=== PATIENT | male | born 1930 | race Caucasian/White ===

== ENCOUNTER 2016-11-22 01:07 | Inpatient (IN) | payer MEDICARE ==
[2016-11-22] MEDS ORDERED: PIPERACILLIN/TAZOBACTAM 3.375 GM VIAL IV ONE (03:19)
[2016-11-22] MEDS ORDERED: ONDANSETRON HCL INJ/PF 4 MG/2 ML SDV IV ONE (03:20)
[2016-11-22] MEDS ORDERED: MORPHINE SULFATE 10 MG/ML INJ IV ONE (03:20)
[2016-11-22] MEDS ORDERED: DIPH/PERTUSS(ACELL)/TETANUS VAC/PF 0.5 ML SYR (>=10YO) IM ONE (03:25)
--- NOTE | 2016-11-22 03:25 | ER Document Report ---
ED General - General Chief Complaint: Rash Stated Complaint: FEVER/RIGHT ARM RASH Time seen by provider: 03:20 Notes: Patient is an 86-year-old male that comes emergency department for chief complaint of fever and also a "rash" on his right arm. Fever started night, he states when he woke on Thursday he noticed the redness on his right arm , symptoms have worsened over the past almost 2 days. Patient states he feels pain in his right armpit and the red areas on his arm are also tender. He denies nausea or vomiting, headache, chest pain, shortness of breath, abdominal pain. He states that he felt lightheaded earlier at home and fell in the bathroom, denies hitting his head or injuring himself. He does not have diabetes, he denies blood thinner use. He states he has a history of shingles and he wonders if this is what the rash is. TRAVEL OUTSIDE OF THE [place] 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 Past Surgical History: Reports: Hx Abdominal Surgery - Immunizations Immunizations up to date: No Hx Diphtheria, Pertussis, Tetanus Vaccination: Yes Review of Systems - Review of Systems Constitutional: See HPI EENT: No symptoms reported Cardiovascular: No symptoms reported Respiratory: No symptoms reported Gastrointestinal: No symptoms reported Genitourinary: No symptoms reported Male Genitourinary: No symptoms reported Musculoskeletal: See HPI Skin: See HPI Hematologic/Lymphatic: No symptoms reported Neurological/Psychological: No symptoms reported Physical Exam - Vital signs Vitals: Temp Pulse Resp BP Pulse Ox 99.2 F 78 16 126/64 H 97 11/22/16 01:53 11/22/16 01:53 11/22/16 01:53 11/22/16 01:53 11/22/16 01:53 Interpretation: Normal - General General appearance: Appears well, Alert In distress: None - HEENT Head: Normocephalic, Atraumatic Eyes: Normal Conjunctiva: Normal Extraocular movements intact: Yes Eyelashes: Normal Pupils: PERRL Sinus: Normal Nasal: Normal Mouth/Lips: Normal Mucous membranes: Normal Pharynx: Normal Neck: Normal - Respiratory Respiratory status: No respiratory distress Chest status: Nontender Breath sounds: Normal. No: Decreased air movement, Wheezing Chest palpation: Normal - Cardiovascular Rhythm: Regular. No: Tachycardia Heart sounds: Normal auscultation, S1 appreciated, S2 appreciated Murmur: No - Abdominal Inspection: Normal Distension: No distension Bowel sounds: Normal Tenderness: Nontender. No: Tender, Guarding Organomegaly: No organomegaly - Back Back: Normal, Nontender. No: Vertebra tenderness - Extremities General upper extremity: Other - There is erythema, warmth, and tenderness over the right forearm from the distal forearm extending up towards the elbow over the medial aspect of the arm and also extending up the medial aspect of the upper arm. Tender axillary lymph nodes in the right axilla. No induration, fluctuance, vesicles, bulla, or other abnormalities noted. Full range of motion of the elbow, not tender over the elbow joint, normal distal neurovascular exam General lower extremity: Normal inspection, Nontender, Normal color, Normal ROM , Normal temperature, Normal weight bearing. No: Elena's sign - Neurological Neuro grossly intact: Yes Cognition: Normal Orientation: AAOx4 Ron Coma Scale Eye Opening: Spontaneous Walsh Coma Scale Verbal: Oriented Walsh Coma Scale Motor: Obeys Commands Walsh Coma Scale Total: 15 Speech: Normal Motor strength normal: LUE, RUE, LLE, RLE Sensory: Normal - Psychological Associated symptoms: Normal affect, Normal mood - Skin Skin Temperature: Warm Skin Moisture: Dry Skin Color: Normal Course - Re-evaluation Re-evalutation: There appears to be a small healing area on the forearm, I asked patient what this is and he states he is not sure if he injured the area or scratched it. Could be a source of infection for what appears to be a cellulitis that extends from the forearm to the arm on the right side, patient has full range of motion of the elbow, nontender over the joint specifically, patient does have tender axillary lymph nodes on the same side. Patient also febrile, elderly, has leukocytosis at 15,000 with elevation of neutrophils. Because of these findings will discussed with patient's primary provider for potential admission. Giving Zosyn antibiotics, update patient's tetanus. Discussed with Dr. Barnett per [facility] protocol. Discussed with Dr. Kulkarni, patient will be admitted to the medical floor. Patient and family state satisfaction and agreement. - Vital Signs Vital signs: Temp Pulse Resp BP Pulse Ox 99.2 F 78 12 109/57 L 95 11/22/16 01:53 11/22/16 01:53 11/22/16 06:01 11/22/16 06:01 11/22/16 06:01 - Laboratory Result Diagrams: 11/22/16 03:31 11/22/16 03:31 Laboratory results interpreted by me: 11/22/16 11/22/16 03:31 03:31 WBC 15.0 H RBC 4.16 L MCV 99 H MCH 34.5 H Plt Count 118 L Seg Neuts % (Manual) 85 H Lymphocytes % (Manual) 6 L Abs Neuts (Manual) 13.4 H Sodium 136.5 L BUN 24 H Est GFR (Non-Af Amer) 55 L Glucose 136 H Discharge - Discharge Clinical Impression: Right forearm cellulitis, Right arm cellulitis, Axillary adenopathy Fever Qualifiers: Fever type: unspecified Qualified Code(s): R50.9 - Fever, unspecified Leukocytosis Qualifiers: Leukocytosis type: unspecified Qualified Code(s): D72.829 - Elevated white blood cell count, unspecified Condition: Stable Disposition: ADMITTED INPATIENT Admitting Provider: Shad Unit Admitted: Medical Floor
[2016-11-22 03:49] LABS: HEMATOCRIT 41.4 % (37.9-51.0); HEMOGLOBIN 14.4 g/dL (13.5-17.0); HGB HCT DIFFERENCE 1.8; MEAN CORPUSCULAR HEMOGLOBIN 34.5 pg (27.0-33.4); MEAN CORPUSCULAR HGB CONC 34.7 g/dL (32.0-36.0); MEAN CORPUSCULAR VOLUME 99 fl (80-97); RED BLOOD COUNT 4.16 10^6/uL (4.35-5.55); RED CELL DISTRIBUTION WIDTH 13.7 % (11.5-14.0)
[2016-11-22 04:01] LABS: ALANINE AMINOTRANSFERASE 22 U/L (21-72); ALBUMIN 3.9 g/dL (3.5-5.0); ALKALINE PHOSPHATASE 70 U/L (38-126); ANION GAP 13 (5-19); ASPARTATE AMINO TRANSFERASE 27 U/L (17-59); BILIRUBIN,TOTAL 0.7 mg/dL (0.2-1.3); BLOOD UREA NITROGEN 24 mg/dL (7-20); CALCIUM 9.2 mg/dL (8.4-10.2); CARBON DIOXIDE 24 mmol/L (22-30); CHLORIDE 100 mmol/L (98-107); CREATININE RESULT 1.24 mg/dL (0.52-1.25); GLUCOSE 136 mg/dL (75-110); POTASSIUM 4.1 mmol/L (3.6-5.0); SODIUM 136.5 mmol/L (137-145); TOTAL PROTEIN 6.6 g/dL (6.3-8.2)
[2016-11-22 04:23] LABS: BAND NEUTROPHILS % (MANUAL) 4 % (3-5); BASOPHILS % (MANUAL) 0 % (0-2); EOSINOPHILS % (MANUAL) 0 % (0-6); LYMPHOCYTES % (MANUAL) 6 % (13-45); TOTAL CELLS COUNTED 100
[2016-11-22 04:24] LABS: BURR CELLS SLIGHT; OVALOCYTES SLIGHT; POIKILOCYTOSIS SLIGHT; TOXIC GRANULATION SLIGHT; TOXIC VACUOLATION PRESENT
--- NOTE | 2016-11-22 08:34 | PDOC H&P ---
History of Present Illness Admission Date/PCP: 11/22/16 06:13 NATY MATTHEWS MD Patient complains of: R arm pain History of Present Illness: JADA VENTURA is a 86 year old male with 2d R arm pain & redness around a scab he cant remember Past Medical History Cardiac Medical History: Reports: Hypertension Pulmonary Medical History: Reports: None EENT Medical History: Reports: None Neurological Medical History: Reports: Other - thyroid & diabetic neuropathy Endocrine Medical History: Reports: Diabetes Mellitus Type 2, Hypothyroidism Renal/ Medical History: Reports: Other - hesitancy Malignancy Medical History: Reports: Lymphoma, Other - Gastric MALT BLADDER GI Medical History: Reports: Gastroesophageal Reflux Disease, Peptic Ulcer Disease, 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 Cavazos Lives with: Family Smoking Status: Former Smoker Last Time Smoked: 1962 Frequency of Alcohol Use: None Hx Recreational Drug Use: No Hx Prescription Drug Abuse: No - Advance Directive Resuscitation Status: Full Code Family History Family History: CVA, Malignancy Parental Family History Reviewed: Yes Children Family History Reviewed: Yes Sibling(s) Family History Reviewed.: Yes Medication/Allergy Home Medications: Allopurinol [Zyloprim 300 mg Tablet] 300 mg PO DAILY 11/22/16 Aspirin [Aspirin 81 mg Chewable Tablet] 81 mg PO DAILY 11/22/16 Citalopram Hydrobromide [Celexa 20 mg Tablet] 20 mg PO DAILY 11/22/16 Finasteride 5 mg PO DAILY 11/22/16 Folic Acid 0.4 mg PO DAILY 11/22/16 Levothyroxine Sodium [Synthroid 0.1 mg Tablet] 100 mcg PO DAILY 11/22/16 Lisinopril 10 mg PO DAILY 11/22/16 Multivit-Min/FA/Lycopen/Lutein [Centrum Silver Men Tablet] 1 each PO DAILY 11/22 Omeprazole 20 mg PO DAILY 11/22/16 Saw [place] 80 mg PO DAILY 11/22/16 Simvastatin 10 mg PO DAILY 11/22/16 Vit C/E/Zinc/Lutein/Zeaxanthin [[employer] Gummies] 1 each PO DAILY Vitamin B Complex [B Complex] 1 each PO DAILY 11/22/16 Allergies/Adverse Reactions: No Known Allergies Allergy (Unverified 11/22/16 01:53) Review of Systems Constitutional: PRESENT: fever(s) - 103. ABSENT: weight loss Nose, Mouth, and Throat: ABSENT: sore throat Cardiovascular: ABSENT: chest pain, dyspnea on exertion, orthropnea Respiratory: PRESENT: cough - dry on janae Gastrointestinal: ABSENT: abdominal pain, constipation, diarrhea, hematochezia, vomiting Genitourinary: PRESENT: dysuria - intermittant. ABSENT: difficulty urinating, hematuria Musculoskeletal: PRESENT: back pain Integumentary: PRESENT: erythema, wounds Psychiatric: ABSENT: depression Physical Exam Vital Signs: Temp Pulse Resp BP Pulse Ox 98.2 F 82 18 142/78 H 97 11/22/16 07:59 11/22/16 07:59 11/22/16 07:59 11/22/16 07:59 11/22/16 07:59 General appearance: PRESENT: no acute distress Mouth exam: PRESENT: moist Neck exam: PRESENT: lymphadenopathy - tender nonpaalpable R axillary. ABSENT: tenderness, thyromegaly, tracheal deviation Respiratory exam: PRESENT: clear to auscultation cassy Cardiovascular exam: ABSENT: diastolic murmur, irregular rhythm, systolic murmur GI/Abdominal exam: ABSENT: mass, organolmegaly, tenderness Extremities exam: ABSENT: pedal edema Neurological exam: PRESENT: oriented to situation Psychiatric exam: PRESENT: appropriate affect Skin exam: PRESENT: erythema - R forearm to axilla dorsal Rforearm [id number] with yellow halo I punctured it and sent for culture Results Laboratory Results: Abnormal - 24 hr 11/22/16 11/22/16 03:31 03:31 WBC 15.0 H RBC 4.16 L MCV 99 H MCH 34.5 H Plt Count 118 L Seg Neuts % (Manual) 85 H Lymphocytes % (Manual) 6 L Abs Neuts (Manual) 13.4 H Sodium 136.5 L BUN 24 H Est GFR (Non-Af Amer) 55 L Glucose 136 H Assessment & Plan - Diagnosis (1) Right arm cellulitis Is this a current diagnosis for this admission?: YesPlan: ceftriaxone
[2016-11-22] MEDS ORDERED: ENOXAPARIN SODIUM INJ 40 MG/0.4 ML DISP.SYRIN SUBCUT ONE (11:00)
[2016-11-22] MEDS: ALLOPURINOL 300 MG TABLET PO SCH (11:27)
[2016-11-22] MEDS: CITALOPRAM HYDROBROMIDE 20 MG TABLET PO SCH (11:27)
[2016-11-22] MEDS: ACETAMINOPHEN 325 MG TABLET PO PRN ×2 (11:28→22:13)
[2016-11-22] MEDS: ASPIRIN 81 MG TABLET, CHEWABLE PO SCH (11:29)
[2016-11-22] MEDS: FINASTERIDE 5 MG TABLET PO SCH (11:29)
[2016-11-22] MEDS: LEVOTHYROXINE SODIUM 0.1 MG TABLET PO SCH (11:29)
[2016-11-22] MEDS: CEFTRIAXONE 2 GM/D5W RTU 50 ML IV SCH (11:37)
[2016-11-22] MEDS ORDERED: LANSOPRAZOLE 15 MG TAB.RAP.DR PO ONE (12:00)
[2016-11-22] MEDS: SIMVASTATIN 10 MG TABLET PO SCH (22:13)
[2016-11-23] MEDS: LANSOPRAZOLE 15 MG TAB.RAP.DR PO SCH (05:33)
--- NOTE | 2016-11-23 07:26 | PDOC PROGRESS REPORT ---
Subjective Progress Note for:: 11/23/16 Subjective:: dorsal R arm less red & painful. Volar worse Physical Exam Vital Signs: Temp Pulse Resp BP Pulse Ox 100.1 F 79 18 108/44 L 94 11/22/16 23:31 11/22/16 23:31 11/22/16 23:31 11/22/16 23:31 11/22/16 23:31 Intake & Output 11/21/16 11/22/16 11/23/16 07:59 07:59 07:59 Intake Total 1130 Output Total 500 Balance 630 Weight 190 lb 0.615 oz General appearance: PRESENT: no acute distress Respiratory exam: PRESENT: clear to auscultation cassy Cardiovascular exam: ABSENT: diastolic murmur, irregular rhythm, systolic murmur GI/Abdominal exam: ABSENT: mass, organolmegaly, tenderness Extremities exam: ABSENT: pedal edema Skin exam: PRESENT: erythema - dorsal R arm less red. Volar more red tender & edmatous. No focal induration or fluctulance. Assessment & Plan - Diagnosis (1) Right arm cellulitis Is this a current diagnosis for this admission?: YesPlan: Tmax 100.1. Make inpatient. Continue ceftriaxone. Consider vanc if abscess develops.
[2016-11-23] MEDS: ENOXAPARIN SODIUM INJ 40 MG/0.4 ML DISP.SYRIN SUBCUT SCH (08:38)
[2016-11-23] MEDS: ASPIRIN 81 MG TABLET, CHEWABLE PO SCH (10:05)
[2016-11-23] MEDS: ALLOPURINOL 300 MG TABLET PO SCH (10:05)
[2016-11-23] MEDS: LEVOTHYROXINE SODIUM 0.1 MG TABLET PO SCH (10:05)
[2016-11-23] MEDS: CITALOPRAM HYDROBROMIDE 20 MG TABLET PO SCH (10:06)
[2016-11-23] MEDS: CEFTRIAXONE 2 GM/D5W RTU 50 ML IV SCH (10:06)
[2016-11-23] MEDS: FINASTERIDE 5 MG TABLET PO SCH (10:06)
[2016-11-23] MEDS: TRAMADOL HCL 50 MG TABLET PO PRN ×2 (11:52→18:01)
[2016-11-23] MEDS: SIMVASTATIN 10 MG TABLET PO SCH (21:54)
[2016-11-23] MEDS: ACETAMINOPHEN 325 MG TABLET PO PRN (21:58)
[2016-11-24] MEDS: TRAMADOL HCL 50 MG TABLET PO PRN ×5 (01:33→23:39)
[2016-11-24] MEDS: LANSOPRAZOLE 15 MG TAB.RAP.DR PO SCH (06:46)
[2016-11-24] MEDS: ACETAMINOPHEN 325 MG TABLET PO PRN ×2 (06:48→21:09)
--- NOTE | 2016-11-24 07:54 | PDOC PROGRESS REPORT ---
Subjective Progress Note for:: 11/24/16 Subjective:: less R arm pain Physical Exam Vital Signs: Temp Pulse Resp BP Pulse Ox 99.2 F 66 18 128/59 H 96 11/23/16 23:34 11/23/16 23:34 11/23/16 23:34 11/23/16 23:34 11/23/16 23:34 Intake & Output 11/22/16 11/23/16 11/24/16 07:59 07:59 07:59 Intake Total 1160 Output Total 550 Balance 610 Weight 193 lb 12.581 oz General appearance: PRESENT: no acute distress Respiratory exam: PRESENT: clear to auscultation cassy Cardiovascular exam: ABSENT: diastolic murmur, irregular rhythm, systolic murmur GI/Abdominal exam: ABSENT: mass, organolmegaly, tenderness Extremities exam: ABSENT: pedal edema Neurological exam: PRESENT: oriented to situation Psychiatric exam: PRESENT: appropriate affect Skin exam: PRESENT: erythema - R arm receeding. Now mostly volar elbow. Assessment & Plan - Diagnosis (1) Right arm cellulitis Is this a current diagnosis for this admission?: YesPlan: Tmax 100. Pustule grew groupA beta strep. Switch ceftriaxone to ampicillin. (2) Enlarged prostate with lower urinary tract symptoms (LUTS) Qualifiers: Prostatic enlargement morphology: non-nodular Qualified Code(s): N40.1 - Benign prostatic hyperplasia with lower urinary tract symptoms Is this a current diagnosis for this admission?: YesPlan: Since he cant afford tamsulosin, I will switch lisinopril to doxazosin
[2016-11-24] MEDS: ENOXAPARIN SODIUM INJ 40 MG/0.4 ML DISP.SYRIN SUBCUT SCH (08:05)
[2016-11-24] MEDS ORDERED: AMPICILLIN SODIUM 1 GM in NORMAL SALINE 50 ML IV ONE (09:00)
[2016-11-24] MEDS: LEVOTHYROXINE SODIUM 0.1 MG TABLET PO SCH (09:01)
[2016-11-24] MEDS: ALLOPURINOL 300 MG TABLET PO SCH (09:02)
[2016-11-24] MEDS: ASPIRIN 81 MG TABLET, CHEWABLE PO SCH (09:02)
[2016-11-24] MEDS: FINASTERIDE 5 MG TABLET PO SCH (09:02)
[2016-11-24] MEDS: CITALOPRAM HYDROBROMIDE 20 MG TABLET PO SCH (09:02)
[2016-11-24] MEDS: AMPICILLIN SODIUM 1 GM in NORMAL SALINE 50 ML IV SCH ×3 (11:30→23:38)
[2016-11-24] MEDS: DOXAZOSIN MESYLATE 1 MG TABLET PO SCH (21:07)
[2016-11-24] MEDS: SIMVASTATIN 10 MG TABLET PO SCH (21:09)
[2016-11-25] MEDS: LANSOPRAZOLE 15 MG TAB.RAP.DR PO SCH (06:18)
[2016-11-25] MEDS: AMPICILLIN SODIUM 1 GM in NORMAL SALINE 50 ML IV SCH ×3 (06:19→17:29)
--- NOTE | 2016-11-25 08:18 | PDOC PROGRESS REPORT ---
Subjective Progress Note for:: 11/25/16 Subjective:: less R arm pain Physical Exam Vital Signs: Temp Pulse Resp BP Pulse Ox 98.1 F 59 L 14 112/59 L 95 11/25/16 03:46 11/25/16 03:46 11/25/16 03:46 11/25/16 03:46 11/25/16 03:46 Intake & Output 11/24/16 11/25/16 11/26/16 07:59 07:59 07:59 Intake Total 1160 1345 Output Total 550 150 Balance 610 1195 Weight 193 lb 12.581 oz 171 lb 11.841 oz General appearance: PRESENT: no acute distress Respiratory exam: PRESENT: clear to auscultation cassy Cardiovascular exam: ABSENT: diastolic murmur, irregular rhythm, systolic murmur GI/Abdominal exam: ABSENT: mass, organolmegaly, tenderness Extremities exam: ABSENT: pedal edema Neurological exam: PRESENT: oriented to situation Psychiatric exam: PRESENT: appropriate affect Skin exam: PRESENT: erythema - R arm receding. Still intense under elbow. Almost bullouw. No induration. Assessment & Plan - Diagnosis (1) Right arm cellulitis Is this a current diagnosis for this admission?: YesPlan: 1 more day IV antibiotic then home on amoxil. (2) Enlarged prostate with lower urinary tract symptoms (LUTS) Qualifiers: Prostatic enlargement morphology: non-nodular Qualified Code(s): N40.1 - Benign prostatic hyperplasia with lower urinary tract symptoms Is this a current diagnosis for this admission?: Yes
[2016-11-25] MEDS: ENOXAPARIN SODIUM INJ 40 MG/0.4 ML DISP.SYRIN SUBCUT SCH (08:53)
[2016-11-25] MEDS: TRAMADOL HCL 50 MG TABLET PO PRN ×3 (08:55→22:38)
[2016-11-25] MEDS: FINASTERIDE 5 MG TABLET PO SCH (10:17)
[2016-11-25] MEDS: ALLOPURINOL 300 MG TABLET PO SCH (10:17)
[2016-11-25] MEDS: ASPIRIN 81 MG TABLET, CHEWABLE PO SCH (10:18)
[2016-11-25] MEDS: LEVOTHYROXINE SODIUM 0.1 MG TABLET PO SCH (10:18)
[2016-11-25] MEDS: CITALOPRAM HYDROBROMIDE 20 MG TABLET PO SCH (10:19)
[2016-11-25] MEDS ORDERED: DOCUSATE SODIUM 100 MG CAPSULE PO ONE (19:00)
[2016-11-25] MEDS: DOXAZOSIN MESYLATE 1 MG TABLET PO SCH (22:39)
[2016-11-25] MEDS: SIMVASTATIN 10 MG TABLET PO SCH (22:39)
[2016-11-26] MEDS: AMPICILLIN SODIUM 1 GM in NORMAL SALINE 50 ML IV SCH ×3 (00:16→10:17)
[2016-11-26] MEDS: LANSOPRAZOLE 15 MG TAB.RAP.DR PO SCH (06:30)
--- NOTE | 2016-11-26 07:07 | PDOC DISCHARGE SUMMARY ---
General - Admit/Disc Date/PCP Admission Date/Primary Care Provider: 11/23/16 07:21 NATY MATTHEWS MD Discharge Date: 11/26/16 - Discharge Diagnosis (1) Right arm cellulitis Is this a current diagnosis for this admission?: YesSummary: pustule grew group A strep. Had 5d IV antibiotics: ceftriaxone then ampicillin. Redness has receeded x volar elbow which is less tender. Home on amoxicillin. (2) Enlarged prostate with lower urinary tract symptoms (LUTS) Is this a current diagnosis for this admission?: YesSummary: Tamsulosin cost too much. I switched lisinopril to doxazosin which works. - Additional Information Resuscitation Status: Full Code Discharge Diet: Diabetic Discharge Activity: Activity As Tolerated Home Medications: Allopurinol [Zyloprim 300 mg Tablet] 300 mg PO DAILY 11/22/16 Aspirin [Aspirin 81 mg Chewable Tablet] 81 mg PO DAILY 11/22/16 Citalopram Hydrobromide [Celexa 20 mg Tablet] 20 mg PO DAILY 11/22/16 Finasteride 5 mg PO DAILY 11/22/16 Levothyroxine Sodium [Synthroid 0.1 mg Tablet] 100 mcg PO DAILY 11/22/16 Omeprazole 20 mg PO DAILY 11/22/16 Simvastatin 10 mg PO DAILY 11/22/16 Amoxicillin 500 mg PO TID #18 capsule 11/25/16 Doxazosin Mesylate [Cardura 1 mg Tablet] 1 mg PO QHS #30 tablet 11/25/16 History of Present Illness Patient complains of: R arm rash & fever History of Present Illness: JADA VENTURA is a 86 year old male with 2d R arm pain & redness around a scab he cant remember Hospital Course Hospital Course: see above Physical Exam Vital Signs: Temp Pulse Resp BP Pulse Ox 98.1 F 57 L 20 122/59 L 96 11/26/16 04:08 11/26/16 04:08 11/26/16 04:08 11/26/16 04:08 11/26/16 04:08 Intake & Output 11/24/16 11/25/16 11/26/16 07:59 07:59 07:59 Intake Total 1160 1345 1230 Output Total 550 150 Balance 610 1195 1230 Weight 193 lb 12.581 oz 171 lb 11.841 oz General appearance: PRESENT: no acute distress Respiratory exam: PRESENT: clear to auscultation cassy Cardiovascular exam: ABSENT: diastolic murmur, irregular rhythm, tachycardia GI/Abdominal exam: ABSENT: mass, organolmegaly, tenderness Extremities exam: ABSENT: pedal edema Neurological exam: PRESENT: oriented to situation Psychiatric exam: PRESENT: appropriate affect Skin exam: PRESENT: erythema - now mainly volar elbow. Results Laboratory Results: Labs- Last Values WBC 15.0 10^3/uL (4.0-10.5) H 11/22/16 03:31 RBC 4.16 10^6/uL (4.35-5.55) L 11/22/16 03:31 Hgb 14.4 g/dL (13.5-17.0) 11/22/16 03:31 Hct 41.4 % (37.9-51.0) 11/22/16 03:31 MCV 99 fl (80-97) H 11/22/16 03:31 MCH 34.5 pg (27.0-33.4) H 11/22/16 03:31 MCHC 34.7 g/dL (32.0-36.0) 11/22/16 03:31 RDW 13.7 % (11.5-14.0) 11/22/16 03:31 Plt Count 118 10^3/uL (150-450) L 11/22/16 03:31 Total Counted 100 11/22/16 03:31 Seg Neutrophils % Not Reportable 11/22/16 03:31 Seg Neuts % (Manual) 85 % (42-78) H 11/22/16 03:31 Band Neutrophils % 4 % (3-5) 11/22/16 03:31 Lymphocytes % Not Reportable 11/22/16 03:31 Lymphocytes % (Manual) 6 % (13-45) L 11/22/16 03:31 Monocytes % Not Reportable 11/22/16 03:31 Monocytes % (Manual) 5 % (3-13) 11/22/16 03:31 Eosinophils % Not Reportable 11/22/16 03:31 Eosinophils % (Manual) 0 % (0-6) 11/22/16 03:31 Basophils % Not Reportable 11/22/16 03:31 Basophils % (Manual) 0 % (0-2) 11/22/16 03:31 Absolute Neutrophils Not Reportable 11/22/16 03:31 Abs Neuts (Manual) 13.4 10^3/uL (1.7-8.2) H 11/22/16 03:31 Absolute Lymphocytes Not Reportable 11/22/16 03:31 Abs Lymphs (Manual) 0.9 10^3/uL (0.5-4.7) 11/22/16 03:31 Absolute Monocytes Not Reportable 11/22/16 03:31 Abs Monocytes (Manual) 0.8 10^3/uL (0.1-1.4) 11/22/16 03:31 Absolute Eosinophils Not Reportable 11/22/16 03:31 Absolute Eos (Manual) 0.0 10^3/uL (0.0-0.6) 11/22/16 03:31 Absolute Basophils Not Reportable 11/22/16 03:31 Abs Basophils (Manual) 0.0 10^3/uL (0.0-0.2) 11/22/16 03:31 Toxic Granulation SLIGHT 11/22/16 03:31 Toxic Vacuolation PRESENT 11/22/16 03:31 Large Platelets PRESENT 11/22/16 03:31 Platelet Comment DECREASED 11/22/16 03:31 Poikilocytosis SLIGHT 11/22/16 03:31 Ovalocytes SLIGHT 11/22/16 03:31 [place] Cells SLIGHT 11/22/16 03:31 Sodium 136.5 mmol/L (137-145) L 11/22/16 03:31 Potassium 4.1 mmol/L (3.6-5.0) 11/22/16 03:31 Chloride 100 mmol/L (98-107) 11/22/16 03:31 Carbon Dioxide 24 mmol/L (22-30) 11/22/16 03:31 Anion Gap 13 (5-19) 11/22/16 03:31 BUN 24 mg/dL (7-20) H 11/22/16 03:31 Creatinine 1.24 mg/dL (0.52-1.25) 11/22/16 03:31 Est GFR ( Amer) > 60 (>60) 11/22/16 03:31 Est GFR (Non-Af Amer) 55 (>60) L 11/22/16 03:31 Glucose 136 mg/dL (75-110) H 11/22/16 03:31 Calcium 9.2 mg/dL (8.4-10.2) 11/22/16 03:31 Total Bilirubin 0.7 mg/dL (0.2-1.3) 11/22/16 03:31 Direct Bilirubin 0.0 mg/dL (0.0-0.3) 11/22/16 03:31 AST 27 U/L (17-59) 11/22/16 03:31 ALT 22 U/L (21-72) 11/22/16 03:31 Alkaline Phosphatase 70 U/L (38-126) 11/22/16 03:31 Total Protein 6.6 g/dL (6.3-8.2) 11/22/16 03:31 Albumin 3.9 g/dL (3.5-5.0) 11/22/16 03:31 Qualifiers PATEINT BEING DISCHARGED WITH ANY OF THE FOLLOWING DIAGNOSIS?: No Plan Discharge Plan: home on amoxicillin. 6d ov. Time Spent: Less than 30 Minutes
[2016-11-26] MEDS ORDERED: DOCUSATE SODIUM 100 MG CAPSULE PO ONE (08:00)
[2016-11-26] MEDS: ENOXAPARIN SODIUM INJ 40 MG/0.4 ML DISP.SYRIN SUBCUT SCH (08:21)
[2016-11-26] MEDS: TRAMADOL HCL 50 MG TABLET PO PRN (08:21)
[2016-11-26 08:48] VITALS: BP 132/59
[2016-11-26] MEDS: FINASTERIDE 5 MG TABLET PO SCH (10:15)
[2016-11-26] MEDS: CITALOPRAM HYDROBROMIDE 20 MG TABLET PO SCH (10:15)
[2016-11-26] MEDS: LEVOTHYROXINE SODIUM 0.1 MG TABLET PO SCH (10:16)
[2016-11-26] MEDS: ALLOPURINOL 300 MG TABLET PO SCH (10:17)
[2016-11-26] MEDS: ASPIRIN 81 MG TABLET, CHEWABLE PO SCH (10:17)
== END 2016-11-26 11:45 | disposition home or self-care (01) | DRG 603 ==
LOC: ER 01:07 → UNDOADMIN 06:13 → EH 06:13 → INTOOBSV 08:34 → EH 08:34 → 5 09:00 → OBSVTOIN 11-23 07:21 → 2N 11-24 20:04
PROVIDERS: ADMIT Family Medicine; ATTEND Family Medicine
DX: L03.113 Cellulitis of right upper limb (principal); B95.0 Streptococcus, group A, as the cause of diseases classified elsewhere; N40.1 Benign prostatic hyperplasia with lower urinary tract symptoms; I10 Essential (primary) hypertension; E03.9 Hypothyroidism, unspecified; E11.40 Type 2 diabetes mellitus with diabetic neuropathy, unspecified; K21.9 Gastro-esophageal reflux disease without esophagitis; Z87.891 Personal history of nicotine dependence; Z79.82 Long term (current) use of aspirin
CPT/HCPCS: 36415; 80053; 85025; 87040; 87070; 87077; 87205; 90471; 90715; 96365; 96375; 99285; G0378; J0290; J0696; J1650; J2270; J2405; J2543